=== PATIENT | female | born 1945 | race Caucasian/White ===

== ENCOUNTER 2021-08-17 09:26 | Emergency (ER) | payer MEDICARE ==
[~2021-08-17] VITALS: Ht 152.4 cm; Wt 83.6 kg
[~2021-08-17 09:26] MED LIST: ALPRAZOLAM; ASPIR-LOW81 MG PO; ASPIRIN E.C. 8181 MG PO; DETROL LA4 PO; EFFEXOR 3737.5 MG/TA PO; ENALAPRIL; ENALAPRIL MALEA20 MG PO; FISH OIL 120 MG1 CAP PO; FISH OIL CONC1000 MG PO; FORTAMET500 MG PO; LEVOXIL PO; LEVOXYL0.025 MG PO; METFORMIN500 MG PO; NAPROSYN375 MG PO; NAPROXEN EC375 MG PO; NAPROXEN375 MG PO; OXYBUTYNIN5 MG PO; PERCOCET 325 MG1 TA2 PO; PHENERGAN 25 TA25 MG PO; PRILOSEC 20MG20 MG PO; PRILOSEC PO; SIMVASTATIN20 MG PO; SYNTHROID0.025 MG PO; VASOTEC20 MG PO; VENLAFAXINE75 M1 PO; VENLAFAXINE75 MG PO; VITAMIN C BUFF500 MG PO; VITAMIN C1 TAB PO; XANAX; XANAX0.5 MG PO; ZOCOR 20MG20 MG PO
[2021-08-17 09:31] VITALS: TEMP 98.7
[2021-08-17 11:19] VITALS: BP 125/88; PULSE 83
== END 2021-08-17 11:19 | disposition home or self-care (01) ==
LOC: COL.ER 09:26
DX: S20.211A Contusion of right front wall of thorax, initial encounter (principal); S89.91XA Unspecified injury of right lower leg, initial encounter; Z96.652 Presence of left artificial knee joint; W01.0XXA Fall on same level from slipping, tripping and stumbling without subsequent striking against object, initial encounter; Y92.000 Kitchen of unspecified non-institutional (private) residence as the place of occurrence of the external cause

== ENCOUNTER 2021-08-18 11:00 | Outpatient (RCR) | payer MEDICARE | END 2021-08-19 | disposition home or self-care (01) | LOC: WSPT | DX: Z96.652 Presence of left artificial knee joint (principal) ==

== ENCOUNTER 2021-09-15 11:00 | Outpatient (RCR) | payer MEDICARE | END 2021-09-19 | disposition home or self-care (01) | LOC: WSPT | DX: M17.12 Unilateral primary osteoarthritis, left knee (principal) ==